=== PATIENT | female | born 1990 | race Caucasian/White ===

== ENCOUNTER 2020-12-10 14:33 | Emergency (ER) | payer OTHER ==
[~2020-12-10] VITALS: Ht 157.5 cm; Wt 77.1 kg
--- NOTE | 2020-12-10 14:40 | NUR ---
PATIENT AMBULATED WITH STEADY GAIT TO BED 2.
[2020-12-10 14:44] VITALS: BP 135/79
--- NOTE | 2020-12-10 14:53 | NUR ---
30 Y/O FEMALE C/O ANXIETY WITH SOB AND DIZZINESS THAT STARTED APPROX 45 MIN PRIOR TO ARRIVAL. LUNG SOUNDS CLEAR. PT STATES SHE HAD SIMILAR SYMPTOMS 4 YEARS AGO. REPORTS 6/10 CHEST PRESSURE PAIN. MEDHX: MASS ON PANCREAS, ANXIETY NKA
[2020-12-10] MEDS ORDERED: LORazepam 1 MG TAB PO ONE (15:20)
[2020-12-10] MEDS ORDERED: ATI.5 PO (16:27)
[2020-12-10 16:39] VITALS: BP 135/79
== END 2020-12-10 16:39 | disposition home or self-care (01) ==
LOC: MED 14:33
DX: F41.0 Panic disorder [episodic paroxysmal anxiety] (principal); Z79.899 Other long term (current) drug therapy
CPT/HCPCS: 71045; 93005; 99283

== ENCOUNTER 2020-12-23 14:17 | Emergency (ER) | payer OTHER ==
[~2020-12-23] VITALS: Ht 157.5 cm; Wt 77.1 kg
[~2020-12-23 14:17] MED LIST: ATI.5 PO
[2020-12-23 14:19] VITALS: BP 115/85
--- NOTE | 2020-12-23 14:49 | NUR ---
PATIENT WHEELCHAIR ASSISTED TO BED 08
[2020-12-23] MEDS ORDERED: ONDANSETRON 4 MG/2 ML VIAL IVP ONE (15:05)
[2020-12-23] MEDS ORDERED: NACL 0.9% 1,000 ML IV SCH (15:05)
[2020-12-23] MEDS ORDERED: MORPHINE SULFATE 2 MG/ML SYR IVP ONE (15:05)
[2020-12-23 15:23] LABS: BASOPHILS % (AUTO) 0.5 % (0.0-2.0); EOSINOPHILS % (AUTO) 0.1 % (0.0-4.0); HEMATOCRIT 44.8 % (36-48); HEMOGLOBIN 15.2 g/dL (12.0-16.0); LYMPHOCYTES # (AUTO) 0.9 K/uL (2.5-16.5); LYMPHOCYTES % (AUTO) 11.8 % (20.5-51.1); MEAN CORPUSCULAR HEMOGLOBIN 33 pg (27-31); MEAN CORPUSCULAR HGB CONC 34 g/dL (33-37); MONOCYTES # (AUTO) 0.5 K/uL (0.8-1.0); NEUTROPHILS # (AUTO) 6.1 K/uL (1.8-7.7); NEUTROPHILS % (AUTO) 80.6 % (42.2-75.2); PLATELET COUNT (AUTO) 187 K/uL (140-450); RED BLOOD CELL COUNT(AUTO) 4.62 MIL/uL (4.20-5.40); RED CELL DISTRIBUTION WIDTH 13.5 % (11.6-13.7); WHITE BLOOD COUNT (AUTO) 7.6 K/uL (4.8-10.8)
--- NOTE | 2020-12-23 15:30 | NUR ---
ULTRASOUND AT BEDSIDE
[2020-12-23 15:44] LABS: ALBUMIN 3.7 g/dL (3.4-5.0); ANION GAP 13.7 (8-16); CARBON DIOXIDE 21.5 mmol/L (21-32); CREATININE 0.5 mg/dL (0.6-1.3); POTASSIUM 4.2 mmol/L (3.5-5.1); TOTAL BILIRUBIN 0.6 mg/dL (0.0-1.0)
--- NOTE | 2020-12-23 16:07 | NUR ---
PATIENT TAKEN TO CT VIA WHEELCHAIR
--- NOTE | 2020-12-23 16:16 | NUR ---
PT RETURNED FROM CT SCAN
--- NOTE | 2020-12-23 16:19 | NUR ---
PT AMBULATED TO RESTROOM WITH ASSIST
--- NOTE | 2020-12-23 16:26 | NUR ---
URINE SAMPLE COLLECTED AND HANDED TO [facility] FLOOD
[2020-12-23 16:59] LABS: APPEARANCE,URINE CLEAR (CLEAR); BILIRUBIN,URINE NEGATIVE (NEGATIVE); BLOOD, URINE TRACE-L (NEGATIVE); COLOR,URINE YELLOW (YELLOW); LEUKOCYTE ESTERASE ,URINE NEGATIVE (NEGATIVE); NITRITE, URINE NEGATIVE (NEGATIVE); PH,URINE 5.5 (5.0-9.0); UGLUCOSE NEGATIVE (NEGATIVE)
[2020-12-23 17:09] LABS: RBC,URINE 0-5 /HPF (0-5); WBC,URINE 0-5 /HPF (0-5)
[2020-12-23] MEDS ORDERED: ONDA-24 SL (17:15)
[2020-12-23] MEDS ORDERED: CEPH500C16 PO (17:15)
[2020-12-23 17:45] VITALS: BP 127/79
--- NOTE | 2020-12-23 17:45 | NUR ---
Patient discharged with v/s stable. Written and verbal after care instructions given and explained. Patient alert, oriented and verbalized understanding of instructions. Ambulatory with steady gait. All questions addressed prior to discharge. ID band removed. IV Discontinued. Patient advised to follow up with PMD. Rx of KEFLEX AND ZOFRAN given. Patient educated on indication of medication including possible reaction and side effects. Opportunity to ask questions provided and answered.
== END 2020-12-23 17:45 | disposition home or self-care (01) ==
LOC: MED 14:17
DX: N39.0 Urinary tract infection, site not specified (principal); R11.2 Nausea with vomiting, unspecified; R19.7 Diarrhea, unspecified; Z79.899 Other long term (current) drug therapy; Z87.442 Personal history of urinary calculi
CPT/HCPCS: 36415; 74176; 76856; 80053; 81001; 83605; 83690; 84703; 85025; 96361; 96374; 96375; 99285; J2270; J2405; J7030; 81002